=== PATIENT | female | born 1990 | race Caucasian/White ===

== ENCOUNTER 2019-10-13 08:10 | Emergency (ER) | payer OTHER ==
[2019-10-13] MEDS ORDERED: PANTOPRAZOLE SODIUM 40 MG VIAL IV ONE (09:12)
[2019-10-13] MEDS ORDERED: LORAZEPAM INJ 2 MG/1 ML VIAL IV ONE ×2 (09:12→09:57)
--- NOTE | 2019-10-13 09:13 | ER Document Report ---
ED General - General Chief Complaint: GI Bleeding Stated Complaint: GI ISSUE Time Seen by Provider: 10/13/19 09:00 Primary Care Provider: SOHAN BRAXTON NP [Primary Care Provider] - Follow up as needed Notes: Presents anxiety tremulousness and dark stool. 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 She presents with anxiety and tremulousness as well as dark stool. She is actually scheduled to have an endoscopy today at 1:00 at [facility]. No vomiting but positive nausea. Minimal upper abdominal pain. She denies melena. Her last drink was last night and she feels quite anxious this morning she did not have a drink. - Related Data Allergies/Adverse Reactions: No Known Allergies Allergy (Verified 10/13/19 08:57) Home Medications: Klonopin Past Medical History - General Information source: Patient - Social History Smoking Status: Never Smoker Chew tobacco use (# tins/day): No Frequency of alcohol use: Heavy Drug Abuse: None Family History: None Review of Systems - Review of Systems Notes: REVIEW OF SYSTEMS GEN: Dizziness ENT: Denies sore throat, nasal discharge, ear pain EYES: Denies blurry vision, eye pain, discharge CV: Denies chest pain, palpitations, edema RESP: Denies cough, shortness of breath, wheezing or mild discomfort rectal bleeding d enies abdominal pain, nausea, vomiting, diarrhea MSK: Denies joint pain/swelling, edema, SKIN: Denies rash, skin lesions LYMPH: Denies swollen glands/lymph nodes NEURO: Denies headache, focal weakness or numbness, dizziness PSYCH: Denies depression, suicidal or homicidal ideation PHYSICAL EXAMINATION General: No acute distress, well-nourished Head: Atraumatic, normocephalic ENT: Mouth normal, oropharynx moist, no exudates or tonsillar enlargement Eyes: Conjunctiva normal, pupils equal, lids normal Neck: No JVD, supple, no guarding CVS: Tachycardic regular rhythm, no murmurs Resp: No resp distress, equal and normal breath sounds bilaterally GI: Nondistended, soft, no tenderness to palpation, no rebound or guarding stool exam: Brown Ext: No deformities, no edema, normal range of motion in upper and lower ext Back: No CVA or midline TTP Skin: No rash, warm Lymphatic: No lymphadeopathy noted Neuro: Anxious awake, alert. Face symmetric. GCS 15. Physical Exam - Vital signs Vitals: Temp Pulse Resp BP Pulse Ox 98.4 F 135 H 21 H 160/134 H 100 10/13/19 08:26 10/13/19 08:26 10/13/19 08:26 10/13/19 08:26 10/13/19 08:26 Course - Re-evaluation Re-evalutation: 10/13/19 15:13 Young woman presents with signs and symptoms of gastritis GI bleeding ulcer versus other source of upper GI bleeding in the setting of heavy alcohol use and apparent withdrawal She was given Ativan x2, which resulted in much decreased withdrawal symptoms and a lower heart rate Hemoglobin is normal Her stool is brown not melena and not bright red and her labs are essentially normal except for a mild elevation in LFTs and alcohol pattern On reassessment she feels much better and would like to go to her endoscopy. I discussed this with Dr. Christopher from GI who says that she can show up at the office and be endoscopy and I did give her Ativan orally because we do not have Librium as she did not want to drink today before her endoscopy. We discussed that she is also tapering down her benzos which is bad timing with her trying to stop drinking. I gave her IV Protonix and she has a PPI to start twice daily when she leaves. I have discussed with the patient there likely diagnosis, aftercare plan, follow-up plans and my usual and customary return precautions. They verbalized understanding of this. - Vital Signs Vital signs: Temp Pulse Resp BP Pulse Ox 98.4 F 116 H 18 169/118 H 96 10/13/19 10:36 10/13/19 10:36 10/13/19 10:36 10/13/19 10:36 10/13/19 10:36 - Laboratory Result Diagrams: 10/13/19 09:29 10/13/19 09:29 Laboratory results interpreted by me: 10/13/19 10/13/19 09:29 09:29 WBC 3.3 L MCH 34.4 H MCHC 36.2 H Glucose 119 H AST 280 H ALT 142 H Critical Care Note - Critical Care Note Total time excluding time spent on procedures (mins): 34 Comments: The above patient is critically ill. Not including procedures, but including direct re-evaluations, speaking with patient and/or consultants, interpreting results, and documenting, I spent the total amount of minute listed listed above on critical care time Discharge - Discharge Clinical Impression: Anxiety Alcoholic gastritis with bleeding Qualifiers: Chronicity: acute Qualified Code(s): K29.21 - Alcoholic gastritis with bleeding Condition: Good Disposition: HOME, SELF-CARE Additional Instructions: As we discussed please go back on your proton pump inhibitor and your best to quit drinking You have some good strategies in order to get started Please talk to your primary care regarding Klonopin tapering, and timing is out with your alcohol cessation You are free to go to [facility] today to have your endoscopy at 1:00 Referrals: SOHAN BRAXTON NP [Primary Care Provider] - Follow up as needed
[2019-10-13 09:46] LABS: ABSOLUTE EOSINOPHILS # (AUTO) 0.1 10^3/uL (0.0-0.6); ABSOLUTE LYMPHOCYTES (AUTO) 0.7 10^3/uL (0.5-4.7); ABSOLUTE MONOCYTES (AUTO) 0.3 10^3/uL (0.1-1.4); ABSOLUTE NEUT (AUTO) 2.1 10^3/uL (1.7-8.2); BASOPHILS % (AUTO) 0.8 % (0-2); HEMATOCRIT 42.5 % (36.0-47.0); HEMOGLOBIN 15.4 g/dL (12.0-15.5); LYMPHOCYTES % (AUTO) 21.4 % (13-45); MEAN CORPUSCULAR HEMOGLOBIN 34.4 pg (27.0-33.4); MEAN CORPUSCULAR HGB CONC 36.2 g/dL (32.0-36.0); MEAN CORPUSCULAR VOLUME 95 fl (80-97); PLATELET COUNT 181 10^3/uL (150-450); RED BLOOD COUNT 4.47 10^6/uL (3.72-5.28); RED CELL DISTRIBUTION WIDTH 12.7 % (11.5-14.0); SEGMENTED NEUTROPHILS % (AUTO) 65.8 % (42-78); TOTAL CELLS COUNTED % (AUTO) 100 %; WHITE BLOOD COUNT 3.3 10^3/uL (4.0-10.5)
[2019-10-13 10:07] LABS: ALBUMIN 4.7 g/dL (3.5-5.0); ALKALINE PHOSPHATASE 50 U/L (38-126); ANION GAP 8 (5-19); ASPARTATE AMINO TRANSFERASE 280 U/L (14-36); BILIRUBIN,DIRECT 0.1 mg/dL (0.0-0.4); BILIRUBIN,TOTAL 0.5 mg/dL (0.2-1.3); BLOOD UREA NITROGEN 10 mg/dL (7-20); CARBON DIOXIDE 26 mmol/L (22-30); CHLORIDE 106 mmol/L (98-107); GLUCOSE 119 mg/dL (75-110)
[2019-10-13 10:37] VITALS: BP 169/118
[2019-10-13] MEDS ORDERED: LORAZEPAM 1 MG TABLET PO ONE (10:38)
== END 2019-10-13 11:02 | disposition home or self-care (01) ==
LOC: ER 08:10
DX: K29.21 Alcoholic gastritis with bleeding (principal); F41.9 Anxiety disorder, unspecified; R11.0 Nausea; R10.10 Upper abdominal pain, unspecified; Z79.899 Other long term (current) drug therapy
CPT/HCPCS: 99291; 96374; 96375; 86900; 86901; 36415; 86850; 83690; 85025; 80053; J2060; C9113